=== PATIENT | female | born 1990 | race Caucasian/White ===

== ENCOUNTER → 2016-10-12 | Outpatient (CLI) | payer BC ==
[~2016-10-12] MED LIST: AMINOPHYLLIN200 MG PO; AZITHROMYCIN500 M2 PO; BENTYL20 MG PO; D-1000 185 MG-11 TAB PO; DOXYCYCLINE100 M3 PO; NOVOLOG; PREDNISONE10 MG PO; ROBITUSSIN AC 110 ML PO; ZITHROMAX250 MG PO
[2016-10-12 07:50] LABS: BASO # 0.1 10*3/uL (0.0-0.1); BASO % 0.5 % (0.0-1.0); EOS # 0.2 10*3/uL (0.0-0.4); EOS % 1.3 % (1.0-4.0); HEMATOCRIT 40.2 % (37.0-47.0); HEMOGLOBIN 13.7 g/dl (12.0-16.0); LYMPH # 4.5 10*3/uL (1.3-4.4); LYMPH % 33.6 % (27.0-41.0); MEAN CELL VOLUME 79.1 fl (81.0-99.0); MEAN CORPUSCULAR HGB CONC 34.1 g/dl (33.0-37.0); MEAN PLATELET VOLUME 8.9 fl (9.6-12.3); MONO # 0.7 10*3/uL (0.1-1.0); NEUT # 7.9 10*3/uL (2.3-7.9); NEUT % 59.3 % (47.0-73.0); PLATELET COUNT AUTOMATED 436 10*3/uL (130-400); RED BLOOD COUNT 5.08 10*6/uL (4.10-5.10); RED CELL DISTRI WIDTH 13.5 % (0-14.5); WHITE BLOOD COUNT 13.3 10*3/uL (4.8-10.8)
== END ==
LOC: LAB 06:53 → MRI 07:00
PROVIDERS: Nurse Practitioner Family
DX: M54.16 Radiculopathy, lumbar region (principal); R32 Unspecified urinary incontinence; R53.1 Weakness; J40 Bronchitis, not specified as acute or chronic

== ENCOUNTER → 2016-11-02 | Outpatient (CLI) | payer BC, MEDICAID ==
--- NOTE | ~2016-11-02 | EKG ---
[place], [place] ELECTROCARDIOGRAM REPORT NAME: LUISA JACKSON UNIT #: [id number] ROOM: DOCTOR: LIZZ GRIFFITH MD BIRTHDATE: [birth year] DOS: 11/02/2016 TIME: 11:31 a.m. FINDINGS: Sinus tachycardia with rate of 100. Left atrial enlargement. Abnormal electrocardiogram. LIZZ GRIFFITH MD CM:EKGRPT:ELECTROCARDIOGRAM REPORT [id number] LIZZ GRIFFITH MD
== END ==
LOC: CARD 10:37
DX: E11.9 Type 2 diabetes mellitus without complications (principal); I10 Essential (primary) hypertension; J18.9 Pneumonia, unspecified organism; F17.200 Nicotine dependence, unspecified, uncomplicated

== ENCOUNTER 2017-11-22 16:31 | Emergency (ER) | payer OTHER ==
[~2017-11-22] VITALS: Ht 170.1 cm; Wt 136.1 kg
== END 2017-11-22 18:38 | disposition home or self-care (01) ==
LOC: ED 16:31
DX: S93.402A Sprain of unspecified ligament of left ankle, initial encounter (principal); F17.210 Nicotine dependence, cigarettes, uncomplicated; Z98.890 Other specified postprocedural states; Z90.49 Acquired absence of other specified parts of digestive tract; Z79.899 Other long term (current) drug therapy; X50.1XXA Overexertion from prolonged static or awkward postures, initial encounter; Y93.89 Activity, other specified; Y92.89 Other specified places as the place of occurrence of the external cause; Y99.9 Unspecified external cause status

== ENCOUNTER → 2020-02-20 | Outpatient (CLI) | payer OTHER | END | disposition home or self-care (01) | LOC: COVID19 03:07 | DX: J06.9 Acute upper respiratory infection, unspecified (principal); R53.83 Other fatigue; H66.91 Otitis media, unspecified, right ear; E11.9 Type 2 diabetes mellitus without complications; Z20.828 Contact with and (suspected) exposure to other viral communicable diseases ==

== ENCOUNTER → 2020-09-15 | Outpatient (CLI) | payer SELFPAY | END | disposition home or self-care (01) | LOC: RESCLI 14:55 | PROVIDERS: ATTEND Internal Medicine | DX: E10.9 Type 1 diabetes mellitus without complications (principal); E03.9 Hypothyroidism, unspecified; I10 Essential (primary) hypertension; E78.2 Mixed hyperlipidemia; Z79.899 Other long term (current) drug therapy; Z98.890 Other specified postprocedural states; Z87.891 Personal history of nicotine dependence ==

== ENCOUNTER → 2021-01-20 | Outpatient (CLI) | payer SELFPAY | END | disposition home or self-care (01) | LOC: RESCLI 01-19 09:00 | PROVIDERS: ATTEND Student in an Organized Health Care Education/Training Program | DX: E10.9 Type 1 diabetes mellitus without complications (principal); E66.01 Morbid (severe) obesity due to excess calories; I10 Essential (primary) hypertension; E78.2 Mixed hyperlipidemia; Z79.899 Other long term (current) drug therapy; Z98.890 Other specified postprocedural states; Z87.891 Personal history of nicotine dependence ==

== ENCOUNTER → 2021-07-27 | Outpatient (CLI) | payer MEDICAID | END | disposition home or self-care (01) | LOC: RAD 12:47 | PROVIDERS: ATTEND Nurse Practitioner Family | DX: S22.000A Wedge compression fracture of unspecified thoracic vertebra, initial encounter for closed fracture (principal); R06.02 Shortness of breath; R05.9 Cough, unspecified; R50.9 Fever, unspecified; R06.2 Wheezing; X58.XXXA Exposure to other specified factors, initial encounter; Y93.89 Activity, other specified; Y92.89 Other specified places as the place of occurrence of the external cause; Y99.8 Other external cause status ==

== ENCOUNTER → 2021-11-10 | Outpatient (CLI) | payer SELFPAY | END | disposition home or self-care (01) | LOC: RESCLI 01:49 | PROVIDERS: ATTEND Internal Medicine Nephrology | DX: E10.9 Type 1 diabetes mellitus without complications (principal); I10 Essential (primary) hypertension; Z79.899 Other long term (current) drug therapy ==

== ENCOUNTER → 2022-03-22 | Outpatient (CLI) | payer BC | END | disposition home or self-care (01) | LOC: RAD 16:31 | PROVIDERS: ATTEND Nurse Practitioner Family | DX: R05.1 Acute cough (principal); R06.02 Shortness of breath; M47.814 Spondylosis without myelopathy or radiculopathy, thoracic region ==